=== PATIENT | female | born 1990 | race African-American/Black ===

== ENCOUNTER 2017-04-29 17:44 | Emergency (ER) | payer SELFPAY ==
[~2017-04-29] VITALS: Ht 160 cm; Wt 65.0 kg
[~2017-04-29 17:44] MED LIST: PREV30CA36 PO
[2017-04-29 17:46] VITALS: BP 116/71; PULSE 63; RESP 14; TEMP 98; O2SAT 99
[2017-04-29] MEDS ORDERED: ZITHTAB PO (19:32)
--- NOTE | 2017-04-29 19:32 | PD ---
HPI Chief Complaint: GI Complaint Time Seen by Provider: 19:16 Travel History International Travel<30 days: No Contact w/Intl Traveler<30days: No Traveled to known affect area: No History of Present Illness HPI 26-year-old female complains of earache sore throat coughing congestion headache. Patient states that his symptom has been intermittent for the past 2 months. Patient states the cough became productive recently. Patient denies any chest pain or shortness of breath. Patient states that she has mild abdominal discomfort. Patient denies any nausea vomiting diarrhea. Patient denies any dysuria frequency. Patient denies any vaginal discharge or bleeding. Patient denies any chance of being . PFSH Past Medical History ?: Not LMP: 04/17/17 Social History Alcohol Use: Yes (occ ) Tobacco Use: No Substance Use: Yes (kelsie) Allergies-Medications (Allergen,Severity, Reaction): Coded Allergies: No Known Allergies (Unverified Adverse Reaction, Unknown, 04/29/17) Reported Meds & Prescriptions Reported Meds & Active Scripts Active Prevacid (Lansoprazole) 30 Mg Capcr 30 Mg PO DAILY Review of Systems General / Constitutional: No: Fever Eyes: No: Visual changes HENT: Positive: Headaches, Sore Throat Cardiovascular: No: Chest Pain or Discomfort Respiratory: Positive: Cough, No: Shortness of Breath Gastrointestinal: No: Abdominal Pain Genitourinary: No: Dysuria Musculoskeletal: No: Pain Skin: No Rash Neurologic: No: Weakness Psychiatric: No: Depression Endocrine: No: Polydipsia Hematologic/Lymphatic: No: Easy Bruising Physical Exam Narrative GENERAL: Well-nourished, well-developed patient. SKIN: Focused skin assessment warm/dry. HEAD: Normocephalic. EYES: No scleral icterus. No injection or drainage. TM: Clear. Throat: Mildly erythematous. NECK: Supple, trachea midline. No JVD or lymphadenopathy. CARDIOVASCULAR: Regular rate and rhythm without murmurs, gallops, or rubs. RESPIRATORY: Breath sounds equal bilaterally. No accessory muscle use. GASTROINTESTINAL: Abdomen soft, non-tender, nondistended. MUSCULOSKELETAL: No cyanosis, or edema. BACK: Nontender without obvious deformity. No CVA tenderness. Data Data Last Documented VS Vital Signs Date Time Temp Pulse Resp B/P (MAP) Pulse Ox O2 Delivery O2 Flow Rate FiO2 04/29/17 17:46 98.0 63 14 116/71 (86) 99 Room Air MDM Medical Decision Making Medical Screen Exam Complete: Yes Emergency Medical Condition: Yes Differential Diagnosis Differential diagnosis includes URI, otitis media, pharyngitis, bronchitis, pneumonia. Narrative Course 26-year-old female with headache, sore throat, Diagnosis Primary Impression: Bronchitis Additional Impression: Viral syndrome Patient Instructions: General Instructions Additional Instructions: Z-Joseph as directed. [id number] medication for decongestant. Tylenol for fever and headache. Follow-up with personal physician. Return if worse. Med/Other Pt SpecificInfo: Prescription(s) given Scripts Azithromycin (Zithromax Z-Joseph) 250 Mg Dspk 250 MG PO DIRECTED for Infection, #1 DSPK 0 Refills 500 MG (2 tabs) day 1, then 1 tab days 2-5. Prov: Tomás Fernandez MD 04/29/17 Disposition: 01 DISCHARGE HOME Condition: Stable Tomás Fernandez MD Apr 29, 2017 19:32
== END 2017-04-29 20:03 | disposition home or self-care (01) ==
LOC: NEPD 17:44
DX: J40 Bronchitis, not specified as acute or chronic (principal); B34.9 Viral infection, unspecified
CPT/HCPCS: 99283